=== PATIENT | female | born 1930 | race Caucasian/White ===

== ENCOUNTER 2016-09-23 06:47 | Day surgery (SDC) | payer OTHER ==
[~2016-09-23] VITALS: Ht 157.5 cm; Wt 61.0 kg
[~2016-09-23 06:47] MED LIST: ADVAIR 250/501 DISK IH; BUTALB-CAFF-AC1 EACH PO; CALCIUM ACETAT667 MG PO; CARDURA4 MG PO; CENTRUM SILVER1 EAC3 PO; CEPHALEXIN250 M1 PO; COUMADIN1 MG PO; CYANOCOBALAM1000 MCG PO; DEXILANT60 MG PO; DIALYVITE 3,001 EACH PO; DOXAZOSIN MESYLA4 MG PO; ELIQUIS2.5 MG PO; EXTRA STRENGTH500 M1 PO; FAMOTIDINE20 MG PO; FIORICET,ESG1 TABLET PO; IRON PO; K-DUR10 MEQ PO; LABETALOL HCL200 MG PO; LASIX40 MG PO; LEVOTHYROXINE125 MCG PO; METOPROLOL SUCC25 MG PO; MIRALAX17 GM PO; NITROSTAT0.4 MG SL; PRAVASTATIN SOD40 MG PO; RENAPLEX-D PO; TORSEMIDE20 MG PO; VENTOLIN HFA18 GM IH; VITAMIN D31000 UNI2 PO; WARFARIN SODIUM2 MG PO; WARFARIN SODIUM3 MG PO; [UNRECOGNIZED DRUG - OTHER] PO
[2016-09-23 08:44] LABS: METH RESISTANT S AUREUS PCR NEGATIVE (NEGATIVE); PROBE CHECK PASS; SPECIMEN PROCESSING CONTROL PASS
== END 2016-09-23 09:27 | disposition home or self-care (01) ==
LOC: CATH 06:47
PROVIDERS: Surgery
PROC: 057Y3ZZ Dilation of Upper Vein, Percutaneous Approach (ICD-10-PCS; principal; 2016-09-23)
DX: T82.858A Stenosis of other vascular prosthetic devices, implants and grafts, initial encounter (principal); I12.0 Hypertensive chronic kidney disease with stage 5 chronic kidney disease or end stage renal disease; N18.6 End stage renal disease; Z99.2 Dependence on renal dialysis; I48.91 Unspecified atrial fibrillation; J44.9 Chronic obstructive pulmonary disease, unspecified; Z86.73 Personal history of transient ischemic attack (TIA), and cerebral infarction without residual deficits; Z88.0 Allergy status to penicillin; Z79.01 Long term (current) use of anticoagulants; Z87.891 Personal history of nicotine dependence
CPT/HCPCS: 87641; C1725; C1769; C1894; J1644; J2250; J3010